=== PATIENT | female | born 1990 | race Caucasian/White ===

== ENCOUNTER 2018-06-27 17:24 | Emergency (ER) | payer OTHER, SELFPAY ==
[2018-06-27] MEDS ORDERED: HYDROCODONE/APAP 5/325 MG TAB ONE (18:19)
[2018-06-27] MEDS ORDERED: DIAZEPAM 2 MG TABLET ONE (18:19)
[2018-06-27] MEDS ORDERED: IBUPROFEN 400 MG TAB ONE (18:23)
--- NOTE | 2018-06-27 19:18 | RAD REPORT ---
EXAM DESCRIPTION: RAD - C Spine Ap/Lat - 06/27/2018 6:58 pm CLINICAL HISTORY: Neck pain status post injury FINDINGS: Loss of the normal lordosis of the cervical spine may be secondary to muscle spasm. No fracture or dislocation is seen.
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
[2018-06-27 19:55] VITALS: TEMP 98
[2018-06-27 19:56] VITALS: BP 106/71; O2SAT 98
== END 2018-06-27 19:46 | disposition home or self-care (01) ==
LOC: ER 17:24
DX: M54.12 Radiculopathy, cervical region (principal); V49.40XA Driver injured in collision with unspecified motor vehicles in traffic accident, initial encounter; Z88.8 Allergy status to other drugs, medicaments and biological substances
CPT/HCPCS: 72040; 99284

== ENCOUNTER 2019-03-18 07:33 | Emergency (ER) | payer OTHER ==
--- OUTSIDE RECORDS SUMMARY | 2019-03-18 07:35 | XMS REPORT ---
:1990 [facility] Address [address] [place] [address] Dr. Carias [address] [place] [id number] Care Team Providers Name Role Phone Unavailable Unavailable Unavailable Problems This patient has no known problems. Allergies, Adverse Reactions, Alerts This patient has no known allergies or adverse reactions. Medications This patient has no known medications.
[2019-03-18] MEDS ORDERED: ONDANSETRON 4 MG/2 ML VIAL ONE (08:08)
[2019-03-18] MEDS ORDERED: FAMOTIDINE 20 MG/2 ML VIAL IV ONE (08:08)
[2019-03-18] MEDS ORDERED: NA CHLORIDE 0.9% 1,000 ML ONE (08:08)
[2019-03-18] MEDS ORDERED: FENTANYL CITR 100 MCG/2 ML ONE (08:08)
[2019-03-18 08:13] LABS: Absolute Lymphocytes (CBC) 2.3 K/uL (0.7-4.9); Absolute Monocytes 0.3 K/uL (0.1-1.3); Absolute Neutrophil 2.6 K/uL (1.8-8.0); Basophils % 0.7 % (0-1.3); Eosinophils % 1.2 % (0-4.4); Hematocrit 42.3 % (36.0-45.0); Lymphocytes % 43.6 % (15.3-44.8); MPV 8.3 fL (7.6-11.3); Monocytes % 6.3 % (3.3-12.3); RBC Red Blood Cell Count 5.01 M/uL (3.86-4.86)
[2019-03-18 08:25] LABS: Albumin 4.3 g/dL (3.4-5.0); Bilirubin Direct 0.1 mg/dL (0-0.2); Bilirubin Total 0.4 mg/dL (0.2-1.0); Potassium 3.4 mmol/L (3.5-5.1); Protein, Total 7.8 g/dL (6.4-8.2)
--- NOTE | 2019-03-18 08:38 | RAD REPORT ---
EXAM DESCRIPTION: US - Abdomen Exam Limited - 03/18/2019 8:18 am CLINICAL HISTORY: Abdominal pain, right upper quadrant pain COMPARISON: None. FINDINGS: No gallstones, sludge or other abnormalities within the gallbladder lumen. There is no wal l thickening or pericholecystic fluid. No common duct stone or biliary tree dilatation identified. IMPRESSION: Normal gallbladder and biliary tree ultrasound.
--- NOTE | 2019-03-18 08:39 | RAD REPORT ---
EXAM DESCRIPTION: RAD - Chest Single View - 03/18/2019 8:23 am CLINICAL HISTORY: Abdominal pain, sharp epigastric pain, abdominal distention, chest pain COMPARISON: None. TECHNIQUE: AP portable chest image was obtained 0819 hours . FINDINGS: Lungs are clear. Heart and vasculature are normal. No measurable pleural effusion and no p neumothorax. No acute bony abnormality seen. No acute aortic findings suspected. IMPRESSION: No acute cardiopulmonary process.
[2019-03-18] MEDS ORDERED: NS KCL 20MEQ 0 ML IV ONE (09:10)
--- NOTE | 2019-03-18 10:25 | RAD REPORT ---
EXAM DESCRIPTION: CTAbdomen Pelvis W Contrast - 03/18/2019 10:17 am CLINICAL HISTORY: Abdominal pain. ABD PAIN COMPARISON: Abdomen Exam Limited dated 03/18/2019; Chest Single View dated 03/18/2019 TECHNIQUE: Biphasic CT imaging of the abdomen and pelvis was performed with 100 ml non-ionic IV cont rast. All CT scans are performed using dose optimization technique as appropriate and may include automated exposure control or mA/KV adjustment according to patient size. FINDINGS: The lung bases are clear. The liver contains multiple small subcentimeter lesions likely cysts but too small to fully character ize. The spleen, pancreas, adrenal glands and kidneys are within normal limits. No bowel obstruction, free air, free fluid or abscess. Small fat containing umbilical hernia. The marty endix is normal. No evidence of significant lymphadenopathy. No suspicious bony findings. IMPRESSION: No acute intra-abdominal or pelvic finding.
[2019-03-18] MEDS ORDERED: MAGNE/ALUM HYDROXD 30 ML UCUP ONE (11:09)
[2019-03-18] MEDS ORDERED: LIDOCAINE VISCOUS 2% SOLN 15 ML UDC ONE (11:09)
[2019-03-18] MEDS ORDERED: PANTOPRAZOLE 40 MG INJ ONE (11:09)
--- NOTE | 2019-03-18 11:27 | ER ---
Nurse's Notes [facility] Name: Maryanne Live Age: 28 yrs Sex: Female : 1990 Arrival Date: 03/18/2019 Time: 07:35 Bed 15 Private MD: Diagnosis: Abdominal tenderness;Gastritis, unspecified;Hypokalemia Presentation: 03/18 07:42 Presenting complaint: Patient states: sharp epigastric pain that began 20-30 minutes ss ago when patient woke up. Denies N/V/D. Transition of care: patient was not received from another setting of care. Onset of symptoms was March 18, 2019. Risk Assessment: Do you want to hurt yourself or someone else? Patient reports no desire to harm self or others. Initial Sepsis Screen: Does the patient meet any 2 criteria? HR > 90 bpm. Does the patient have a suspected source of infection? No. Patient's initial sepsis screen is negative. Care prior to arrival: None. 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 - Social history:: Smoking status: Patient/guardian denies using tobacco. - Ebola Screening: : Patient denies exposure to infectious person Patient denies travel to an Ebola-affected area in the 21 days before illness onset. Screenin:40 Abuse screen: Denies threats or abuse. Denies injuries from another. Nutritional ss screening: No deficits noted. Tuberculosis screening: Never had TB. Fall Risk None identified. Assessment: 07:40 General: Appears distressed, uncomfortable, Behavior is cooperative, restless, Reports ss feeling ill for 0-12 hours, Denies fever, fatigue, chills. Pain: Complains of pain in epigastric area Pain radiates to back Pain currently is 10 out of 10 on a pain scale. Quality of pain is described as sharp, Pain began 20-30 minutes prior to arrival Is continuous. Neuro: Level of Consciousness is awake, alert, obeys commands, Oriented to person, place, time, situation. Cardiovascular: Capillary refill < 3 seconds is brisk in bilateral fingers Patient's skin is warm and dry. Respiratory: Airway is patent Respiratory effort is even, unlabored, Respiratory pattern is regular, symmetrical. GI:. GI: Patient currently denies diarrhea, nausea, vomiting. : Denies burning with urination, urinary frequency, pt reports that she was attempting to get this month. EENT: Oral mucosa is moist. Derm: Skin is intact, is healthy with good turgor, Skin is pink, warm \\T\\ dry. normal. Musculoskeletal: Circulation, motion, and sensation intact. Range of motion: intact in all extremities, Swelling absent. 08:50 Reassessment: Patient appears in no apparent distress at this time. Patient and/or ph family updated on plan of care and expected duration. Pain level reassessed. Patient is alert, oriented x 3, equal unlabored respirations, skin warm/dry/pink. Pt reports that pain has improved to 5/10, states, " My stomach is still cramping though." Denies nausea at this time, awaiting CT scan, VSS, family at bedside. 10:11 Reassessment: Patient appears in no apparent distress at this time. Patient and/or tw2 family updated on plan of care and expected duration. Pain level reassessed. Patient is alert, oriented x 3, equal unlabored respirations, skin warm/dry/pink. pt reports "cramping still but the pain is better" Patient states feeling better. 10:12 GI: Bowel sounds present X 4 quads. Abd is soft X 4 quads. tw2 11:13 Reassessment: Patient appears in no apparent distress at this time. Patient and/or tw2 family updated on plan of care and expected duration. Pain level reassessed. Patient is alert, oriented x 3, equal unlabored respirations, skin warm/dry/pink. Patient states feeling better. Patient states symptoms have improved. Vital Signs: 07:43 BP 143 / 92; Pulse 144; Resp 18; Temp 97.5(TE); Pulse Ox 99% ; Weight 63.96 kg; Height ss 5 ft. 4 in. (162.56 cm); Pain 10/10; 08:38 BP 105 / 77; Pulse 119; ss 09:46 BP 113 / 73; Pulse 76; Resp 18; Pulse Ox 100% on R/A; Pain 5/10; ph 10:12 BP 106 / 71; Pulse 70; Resp 17; Pulse Ox 100% ; Pain 7/10; tw2 11:13 BP 97 / 66; Pulse 85; Resp 16; Pulse Ox 99% on R/A; tw2 07:43 Body Mass Index 24.20 (63.96 kg, 162.56 cm) ED Course: 07:35 Patient arrived in ED. rg4 07:40 Patient has correct armband on for positive identification. Bed in low position. Call ss light in reach. 07:40 Patient maintains SpO2 saturation greater than 95% on room air. ss 07:43 Triage completed. ss 07:43 Arm band placed on right wrist. ss 07:45 EKG done, by ED staff, reviewed by Jaiden Villalobos MD. dh3 07:45 Inserted saline lock: 20 gauge in right antecubital area, using aseptic technique. ss Blood collected. 07:47 Jaiden Villalobos MD is Attending Physician. adam 07:50 Yashira Anderson RN is Primary Nurse. ph 08:20 US Abdomen Limited In Process Unspecified. EDMS 08:24 Chest Single View XRAY In Process Unspecified. EDMS 08:30 Oral contrast given. sw 10:10 Primary Nurse role handed off by Yashira Anderson RN tw2 10:10 Fariha Alfred RN is Primary Nurse. tw2 10:15 CT completed. Patient tolerated procedure well. Patient moved to CT via wheelchair. sj Patient moved back from CT. 10:18 CT Abd/Pelvis - W/Contrast In Process Unspecified. EDMS 11:02 EKG done, by sand technologist. reviewed by Jaiden Villalobos MD. sm3 11:23 Anuradha Zhang MD is Referral Physician. adam 11:58 No provider procedures requiring assistance completed. IV discontinued, intact, tw2 bleeding controlled, No redness/swelling at site. Pressure dressing applied. Administered Medications: 08:02 Drug: Zofran 4 mg Route: IVP; Site: right antecubital; ph 10:31 Follow up: Response: No adverse reaction ph 08:04 Drug: fentaNYL (PF) 50 mcg Route: IVP; Site: right antecubital; ph 08:15 Follow up: Response: No adverse reaction; Pain is unchanged, physician notified ph 08:05 Drug: Pepcid 20 mg Route: IVP; Site: right antecubital; ph 10:31 Follow up: Response: No adverse reaction ph 08:27 Drug: NS 0.9% 1000 ml Route: IV; Rate: 1 bolus; Site: right antecubital; ph 11:58 Follow up: Response: No adverse reaction; IV Status: Completed infusion tw2 08:28 Drug: fentaNYL (PF) 50 mcg Route: IVP; Site: right antecubital; ph 08:45 Follow up: Response: No adverse reaction; Pain is decreased ph 08:28 CANCELLED (Duplicate Order): fentaNYL (PF) 50 mcg IVP once ph 08:38 Not Given (Duplicate Order): NS 0.9% 1000 ml IV at 125 ml/hr continuous adam 10:58 Drug: ProTONIX 40 mg Route: IVP; Site: right antecubital; tw2 11:30 Follow up: Response: No adverse reaction tw2 11:00 Drug: GI Cocktail without - (Maalox Suspension 30 ml, Lidocaine Liquid 2 % 15 tw2 ml) Route: PO; 11:29 Follow up: Response: No adverse reaction tw2 Outcome: 11:25 Discharge ordered by . adam 11:58 Discharged to home ambulatory, with significant other. tw2 11:58 Condition: stable 11:58 Discharge instructions given to patient, family, Instructed on discharge instructions, follow up and referral plans. no drinking with medication, no driving heavy equipment, medication usage, Demonstrated understanding of instructions, follow-up care, medications, Prescriptions given X 3. 11:59 Patient left the ED. tw2 Signatures: Dispatcher [employer] EDMS Jaiden Villalobos MD MD cha Jones, Susan sj Smirch, Shelby RN RN Yashira Anderson RN RN Celestino, Fariha Fermin RN RN tw2 Sabrina Miramontes Deanna [facility] Stephanie Quinteros [facility]
--- NOTE | 2019-03-18 11:27 | EDPHYS ---
Physician Documentation [facility] Name: Maryanne Live Age: 28 yrs Sex: Female : 1990 Arrival Date: 03/18/2019 Time: 07:35 Bed 15 Private MD: ED Physician Jaiden Villalobos HPI: 03/18 07:49 This 28 yrs old Female presents to ER via Ambulatory with complaints of adam Abdominal Pain, Back Pain. 07:49 The patient presents with pain that is acute. The symptoms are located in the lumbar adam area. Onset: The symptoms/episode began/occurred this morning. The pain radiates to the lumbar area. Associated signs and symptoms: The patient has no apparent associated signs or symptoms. Severity of symptoms: At their worst the symptoms were moderate, in the emergency department the symptoms are unchanged. 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 - Social history:: Smoking status: Patient/guardian denies using tobacco. - Ebola Screening: : Patient denies exposure to infectious person Patient denies travel to an Ebola-affected area in the 21 days before illness onset. ROS: 07:50 Constitutional: Negative for fever, chills, and weight loss, Eyes: Negative for injury, adam pain, redness, and discharge, ENT: Negative for injury, pain, and discharge, Neck: Negative for injury, pain, and swelling, Cardiovascular: Negative for chest pain, palpitations, and edema, Respiratory: Negative for shortness of breath, cough, wheezing, and pleuritic chest pain, Back: Negative for injury and pain, : Negative for injury, bleeding, discharge, and swelling, MS/Extremity: Negative for injury and deformity, Skin: Negative for injury, rash, and discoloration, Neuro: Negative for headache, weakness, numbness, tingling, and seizure, Psych: Negative for depression, anxiety, suicide ideation, homicidal ideation, and hallucinations, Allergy/Immunology: Negative for hives, rash, and allergies, Endocrine: Negative for neck swelling, polydipsia, polyuria, polyphagia, and marked weight changes, Hematologic/Lymphatic: Negative for swollen nodes, abnormal bleeding, and unusual bruising. 07:50 Abdomen/GI: Positive for abdominal pain, nausea and vomiting, of the right upper quadrant and left upper quadrant. Exam: 07:50 Constitutional: This is a well developed, well nourished patient who is awake, alert, adam and in no acute distress. Head/Face: Normocephalic, atraumatic. Eyes: Pupils equal round and reactive to light, extra-ocular motions intact. Lids and lashes normal. Conjunctiva and sclera are non-icteric and not injected. Cornea within normal limits. Periorbital areas with no swelling, redness, or edema. ENT: Nares patent. No nasal discharge, no septal abnormalities noted. Tympanic membranes are normal and external auditory canals are clear. Oropharynx with no redness, swelling, or masses, exudates, or evidence of obstruction, uvula midline. Mucous membranes moist. Neck: Trachea midline, no thyromegaly or masses palpated, and no cervical lymphadenopathy. Supple, full range of motion without nuchal rigidity, or vertebral point tenderness. No Meningismus. Chest/axilla: Normal chest wall appearance and motion. Nontender with no deformity. No lesions are appreciated. Respiratory: Lungs have equal breath sounds bilaterally, clear to auscultation and percussion. No rales, rhonchi or wheezes noted. No increased work of breathing, no retractions or nasal flaring. Back: No spinal tenderness. No costovertebral tenderness. Full range of motion. Female : Normal external genitalia. Skin: Warm, dry with normal turgor. Normal color with no rashes, no lesions, and no evidence of cellulitis. MS/ Extremity: Pulses equal, no cyanosis. Neurovascular intact. Full, normal range of motion. Neuro: Awake and alert, GCS 15, oriented to person, place, time, and situation. Cranial nerves II-XII grossly intact. Motor strength 5/5 in all extremities. Sensory grossly intact. Cerebellar exam normal. Normal gait. Psych: Awake, alert, with orientation to person, place and time. Behavior, mood, and affect are within normal limits. 07:50 Cardiovascular: Rate: tachycardic, Rhythm: regular, Pulses: Pulses are 4+ in bilateral radial, brachial, femoral, popliteal, posterior tibial and and dorsalis pedis arteries.. Heart sounds: normal, Edema: is not appreciated. 07:50 Abdomen/GI: Inspection: abdomen appears normal, Bowel sounds: normal, Palpation: moderate abdominal tenderness, in the epigastric area, right upper quadrant and left upper quadrant, Liver: no appreciated palpable abnormalities, Hernia: not appreciated. Vital Signs: 07:43 BP 143 / 92; Pulse 144; Resp 18; Temp 97.5(TE); Pulse Ox 99% ; Weight 63.96 kg; Height ss 5 ft. 4 in. (162.56 cm); Pain 10/10; 08:38 BP 105 / 77; Pulse 119; ss 09:46 BP 113 / 73; Pulse 76; Resp 18; Pulse Ox 100% on R/A; Pain 5/10; ph 10:12 BP 106 / 71; Pulse 70; Resp 17; Pulse Ox 100% ; Pain 7/10; tw2 11:13 BP 97 / 66; Pulse 85; Resp 16; Pulse Ox 99% on R/A; tw2 07:43 Body Mass Index 24.20 (63.96 kg, 162.56 cm) MDM: 07:47 Patient medically screened. [facility] 07:52 Data reviewed: vital signs, nurses notes, lab test result(s), EKG, radiologic studies, [facility] plain films. 03/18 07:50 Order name: Basic Metabolic Panel; Complete Time: 08:38 [facility] 03/18 07:50 Order name: CBC with Diff; Complete Time: 08:38 [facility] 03/18 07:50 Order name: Creatinine for Radiology; Complete Time: 08:38 [facility] 03/18 07:50 Order name: Hepatic Function; Complete Time: 08:38 [facility] 03/18 07:50 Order name: Lipase; Complete Time: 08:38 [facility] 03/18 07:56 Order name: Test, Serum; Complete Time: 09:17 [facility] 03/18 07:50 Order name: Chest Single View XRAY; Complete Time: 09:17 [facility] 03/18 07:50 Order name: US Abdomen Limited; Complete Time: 09:17 [facility] 03/18 08:28 Order name: CT Abd/Pelvis - W/Contrast; Complete Time: 10:34 [facility] 03/18 11:11 Order name: Urine Dipstick--Ancillary (enter results) 03/18 11:11 Order name: Urine --Ancillary (enter results) 03/18 07:50 Order name: IV Saline Lock; Complete Time: 07:50 [facility] 03/18 07:50 Order name: Labs collected and sent; Complete Time: 07:53 [facility] 03/18 07:50 Order name: EKG; Complete Time: 07:50 [facility] 03/18 07:50 Order name: EKG - Nurse/Tech; Complete Time: 07:50 [facility] 03/18 10:55 Order name: EKG - Nurse/Tech; Complete Time: 11:11 [facility] 03/18 10:55 Order name: EKG; Complete Time: 10:54 [facility] Administered Medications: 08:02 Drug: Zofran 4 mg Route: IVP; Site: right antecubital; ph 10:31 Follow up: Response: No adverse reaction ph 08:04 Drug: fentaNYL (PF) 50 mcg Route: IVP; Site: right antecubital; ph 08:15 Follow up: Response: No adverse reaction; Pain is unchanged, physician notified ph 08:05 Drug: Pepcid 20 mg Route: IVP; Site: right antecubital; ph 10:31 Follow up: Response: No adverse reaction ph 08:27 Drug: NS 0.9% 1000 ml Route: IV; Rate: 1 bolus; Site: right antecubital; ph 11:58 Follow up: Response: No adverse reaction; IV Status: Completed infusion tw2 08:28 Drug: fentaNYL (PF) 50 mcg Route: IVP; Site: right antecubital; ph 08:45 Follow up: Response: No adverse reaction; Pain is decreased ph 08:28 CANCELLED (Duplicate Order): fentaNYL (PF) 50 mcg IVP once ph 08:38 Not Given (Duplicate Order): NS 0.9% 1000 ml IV at 125 ml/hr continuous adam 10:58 Drug: ProTONIX 40 mg Route: IVP; Site: right antecubital; tw2 11:30 Follow up: Response: No adverse reaction tw2 11:00 Drug: GI Cocktail without - (Maalox Suspension 30 ml, Lidocaine Liquid 2 % 15 tw2 ml) Route: PO; 11:29 Follow up: Response: No adverse reaction tw2 Disposition: 03/18/19 11:25 Discharged to Home. Impression: Abdominal tenderness, Gastritis, unspecified, Hypokalemia. - Condition is Stable. - Discharge Instructions: Abdominal Pain, Adult, Gastritis, Adult, Nausea and Vomiting, Adult, Abdominal Pain, Adult, [id number], Hypokalemia. - Prescriptions for Bentyl 20 mg Oral Tablet - take 1 tablet by ORAL route every 6 hours As needed; 20 tablet. Protonix 40 mg Oral Tablet - take 1 tablet by ORAL route once daily; 30 tablet. Zofran 4 mg Oral Tablet - take 1 tablet by ORAL route every 12 hours As needed; 20 tablet. - Medication Reconciliation Form, Thank You Letter, Antibiotic Education, Prescription Opioid Use, Work release form, Family Work Release form. - Follow up: Private Physician; When: 2 - 3 days; Reason: Recheck today's complaints, Continuance of care, Re-evaluation by your physician. Follow up: Anuradha Zhang MD; When: 2 - 3 days; Reason: Recheck today's complaints, Continuance of care, Re-evaluation by your physician. - Problem is new. - Symptoms have improved. Signatures: Dispatcher [employer] EDOR Jaiden Villalobos MD MD cha Smirch, Shelby, RN RN Yashira Anderson RN RN Fariha Alfred RN RN tw2 Corrections: (The following items were deleted from the chart) 08:28 08:28 fentaNYL (PF) 50 mcg IVP once ordered. ph 11:59 11:25 03/18/2019 11:25 Discharged to Home. Impression: Abdominal tenderness; Gastritis, tw2 unspecified; Hypokalemia. Condition is Stable. Forms are Work release form, Family Work Release, Medication Reconciliation Form, Thank You Letter, Antibiotic Education, Prescription Opioid Use. Follow up: Private Physician; When: 2 - 3 days; Reason: Recheck today's complaints, Continuance of care, Re-evaluation by your physician. Follow up: Anuradha Zhang; When: 2 - 3 days; Reason: Recheck today's complaints, Continuance of care, Re-evaluation by your physician. Problem is new. Symptoms have improved. adam
[2019-03-18 12:02] LABS: Urine Blood NEGATIVE (NEG); Urine Glucose NEGATIVE (NEG); Urine Protein NEGATIVE (NEG)
[2019-03-18 12:17] VITALS: TEMP 97.5
[2019-03-18 12:23] VITALS: BP 97/66; O2SAT 99
--- NOTE | 2019-03-18 16:45 | EKG ---
Test Date: 2019-03-18 Test Time: 11:02:30 Professor Of Biological Sciences: BRANT MEASUREMENT RESULTS: Intervals: Rate: 71 CO: 154 QRSD: 84 QT: 344 QTc: 373 [place]: P: 30 CO: 154 QRS: 69 T: 30 INTERPRETIVE STATEMENTS: Normal sinus rhythm with sinus arrhythmia Normal ECG Compared to ECG 03/18/2019 07:44:13 Sinus tachycardia no longer present ST (T wave) deviation no longer present Electronically Signed On 03-18-19 16:42:47 CDT by Gino Cano
--- NOTE | 2019-03-18 16:46 | EKG ---
Test Date: 2019-03-18 Test Time: 07:44:13 Medical Recruiter: TIA MEASUREMENT RESULTS: Intervals: Rate: 133 DE: 152 QRSD: 82 QT: 276 QTc: 410 [place]: P: 72 DE: 152 QRS: 68 T: 51 INTERPRETIVE STATEMENTS: Sinus tachycardia Possible Left atrial enlargement Nonspecific ST abnormality Abnormal ECG No previous ECG available for comparison Electronically Signed On 03-18-19 16:43:03 CDT by Gino Cano
== END 2019-03-18 11:59 | disposition home or self-care (01) ==
LOC: ER 07:33
DX: K29.70 Gastritis, unspecified, without bleeding (principal); E87.6 Hypokalemia; Z88.1 Allergy status to other antibiotic agents; Z88.5 Allergy status to narcotic agent
CPT/HCPCS: 36415; 71045; 74177; 76705; 80048; 80076; 81003; 81025; 83690; 84703; 85025; 93005; 96361; 96374; 96375; 99285; C9113; J2405; J3010; J7030; Q9967